=== PATIENT | female | born 1975 | race Caucasian/White ===

== ENCOUNTER 2023-05-05 13:42 | Outpatient (OUT) | payer BC, SELFPAY ==
--- NOTE | 2023-05-05 | XR_ITS ---
The [address] [address] Patient Name: LUCINA HORN MRN: [id number] date: 1975 Sex: F Assigned Patient Location: [facility] Current Patient Location: Accession/Order Number: [id number] Exam Date: 05/05/2023 14:05 Report Date: 05/06/2023 08:38 At the request of: GINGER HUMMEL Procedure: XR chest 2V EXAM: XR chest 2V HISTORY: J22, Lower respiratory infection, R05.1, acute cough COMPARISON: None TECHNIQUE: PA and lateral views of the chest were obtained. FINDINGS: Heart and mediastinal contours are unremarkable in appearance. No acute infiltrate or consolidations are seen. No obvious pneumothorax. Bony structures appear grossly intact. There is a technologist note that the PA view is incorrectly marked with left marker on the patient's right side. XR/XR chest 2V IMPRESSION: No acute process seen in the chest. Electronically authenticated by: TOM PARRY Date: 05/06/2023 08:38
== END 2023-05-05 13:43 | disposition home or self-care (01) ==
LOC: RAD 13:48
PROVIDERS: PCP Nurse Practitioner Primary Care; Visit Provider Nurse Practitioner Primary Care
DX: U07.1 COVID-19 (principal); J22 Unspecified acute lower respiratory infection; R05.1 Acute cough
CPT/HCPCS: 0202U; 71046

== ENCOUNTER 2023-05-05 13:52 | Outpatient (REF) | payer BC, SELFPAY ==
[2023-05-05 14:03] LABS: Adenovirus NOT DETECTED (NOT DETECTE); Bordetella parapertussis NOT DETECTED (NOT DETECTE); Coronavirus 229E NOT DETECTED (NOT DETECTE); Coronavirus HKU1 NOT DETECTED (NOT DETECTE); Coronavirus NL63 NOT DETECTED (NOT DETECTE); Coronavirus OC43 NOT DETECTED (NOT DETECTE); Human Metapneumovirus NOT DETECTED (NOT DETECTE); Human Rhinovirus/Enterovirus NOT DETECTED (NOT DETECTE); Influenza A NOT DETECTED (NOT DETECTE); Influenza B NOT DETECTED (NOT DETECTE); Mycoplasma pneumoniae NOT DETECTED (NOT DETECTE); Parainfluenza Virus 1 NOT DETECTED (NOT DETECTE); Parainfluenza Virus 2 NOT DETECTED (NOT DETECTE); Parainfluenza Virus 3 NOT DETECTED (NOT DETECTE); Parainfluenza Virus 4 NOT DETECTED (NOT DETECTE); Respiratory Syncytial Virus NOT DETECTED (NOT DETECTE)
[2023-05-05 15:02] LABS: SARS-CoV-2 DETECTED (NOT DETECTE)
== END 2023-05-05 13:53 | disposition home or self-care (01) ==
LOC: LAB 13:52
PROVIDERS: PCP Nurse Practitioner Primary Care; Visit Provider Nurse Practitioner Primary Care
DX: U07.1 COVID-19 (principal); J22 Unspecified acute lower respiratory infection
CPT/HCPCS: 0202U